=== PATIENT | male | born 1955 | race African-American/Black ===

== ENCOUNTER 2018-07-16 13:59 | Inpatient (IN) | payer OTHER, SELFPAY ==
[2018-07-16 15:02] LABS: INR-International Normal Ratio 0.9; PTT 30.4 SEC (22.9-36.1); Prothrombin Time 12.7 SEC (12.0-14.7)
[2018-07-16] MEDS ORDERED: Acetaminophen 325 MG TAB PO PRN (15:10)
[2018-07-16] MEDS ORDERED: Dextrose 5% in Water 1,000 ML IV PRN (15:12)
[2018-07-16] MEDS ORDERED: Dextrose 50% Abboject 50 ML SYRINGE SLOW IVP PRN (15:12)
[2018-07-16] MEDS ORDERED: methylPREDNISolone 4 mg Tablet PO SCH (15:15)
[2018-07-16] MEDS ORDERED: Metoprolol Tartrate 25 MG TAB ONE (16:53)
[2018-07-16] MEDS ORDERED: hydrALAZINE 20 MG/ML VIAL SLOW IVP PRN (17:04)
--- NOTE | 2018-07-16 17:49 | HP ---
CHIEF COMPLAINT: Swelling of the tongue. HISTORY OF PRESENT ILLNESS: The patient is a very pleasant 62-year-old male with a past medical hist ory of hypertension, diabetes, and chronic kidney disease who presented to the hospital with tongue s welling. The patient stated that he did not start any new medications; however, about maybe 6 months ago, that is when his first symptoms started of tongue swelling. The patient stated that it was mil d, which woke him up around early in the morning. He gargled with salt water and vinegar and that re solved. The second episode was about 6 weeks ago. He had a similar episode where he woke up and his tongue felt thick, so he did the similar thing by gargling with salt water and vinegar. However, th e second time around, it was more severe than the first time and his symptoms resolved, so he did not do anything about it. The patient stated that this morning he woke up around 4:00 a.m., felt very s ignificant thickness, felt like he was biting his tongue. The patient then did the same thing, gargl e with salt water and vinegar. He did not feel well; however, at 6:00 a.m., he took all his medicati ons including lisinopril, started having significant swelling around his lips area and also worsening of the tongue swelling, so he came in to [facility] for further investigation. The miesha ent over there was given Solu-Medrol and was transferred here for further management. PAST MEDICAL HISTORY: History of hypertension, diabetes, anemia, sickle cell trait, and also chronic kidney disease. Questionable polycystic kidney disease, I am not sure. 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 PAST SURGICAL HISTORY: He has had his left kidney removed. There is a question whether he had cance r versus it was polycystic, I am not sure. The patient is unsure also. He has had some back surgeri es. ALLERGIES: He is allergic to CODEINE and METFORMIN; he states he gets diarrhea, and with codeine he gets hives. MEDICATIONS: 1. The patient takes glipizide 10 mg daily. 2. Amlodipine 10 mg daily. 3. Chlorthalidone 25 mg daily. 4. Lisinopril 40 mg daily. 5. Novolin N 5 units daily. 6. Fish oil. 7. Nifedipine 30 mg once a day. SOCIAL HISTORY: The patient drinks a bottle of wine 2-3 times a week. Denies any smoking or drug us e. FAMILY HISTORY: No history of heart disease. He does have a history of diabetes in his family. REVIEW OF SYSTEMS: All negative except for the ones mentioned above in the HPI. PHYSICAL EXAMINATION: VITAL SIGNS: Temperature of 98.8, blood pressure of 115/60, heart rate of 86. He is 100% on room ai r. GENERAL: He is awake, alert, and oriented x3. He is in no apparent distress. HEENT: He does have some mild swelling of the tongue. No lip swelling was noted. I was able to see his uvula. CARDIOVASCULAR: S1, S2 present. No murmurs, rubs, or gallops. LUNGS: Clear to auscultation. No rhonchi or wheezes noted. ABDOMEN: Soft, nontender. Bowel sounds are present x2. EXTREMITIES: No edema. Pedal pulses are present x2. NEUROLOGIC: Neurovascular celeste, no focal deficits noted. SKIN: No lesions, cuts, or bruises noted. LABORATORY DATA: His WBC was 6, hemoglobin of 11.4, hematocrit of 35.6, platelets of 217. Chemistry : Sodium of 134, potassium of 4.5, BUN of 36, creatinine of 1.55. ASSESSMENT AND PLAN: The patient is a very pleasant 62-year-old male, who presented to the hospital with tongue swelling. 1. Angioedema, most likely secondary to CHRISS. We will hold his CHRISS and we will add it as an allergy. Also, we will put the patient on a Medrol Dosepak and also give Pepcid b.i.d. Also give him Clarit in and observe him overnight for any delayed reaction. The patient was notified that if he does have any change in symptoms, he needs to notify us about it. 2. Hypertension. We will continue the remaining of his medications. 3. Chronic kidney disease. We will continue to monitor. 4. For deep venous thrombosis prophylaxis, we will place the patient on SCDs.
[2018-07-16] MEDS: methylPREDNISolone 4 mg Tablet PO SCH ×2 (20:05→20:41)
[2018-07-16] MEDS: Famotidine 20 MG TAB PO SCH ×2 (20:40→20:57)
[2018-07-16] MEDS: Metoprolol Tartrate 25 MG TAB PO SCH ×2 (20:40→20:58)
[2018-07-16] MEDS: Loratadine 10 MG TAB PO SCH (20:58)
[2018-07-16] MEDS ORDERED: Insulin Glargine 5 UNITS in Pre-Filled Syringe 1 EACH SC SCH (21:00)
[2018-07-16] MEDS ORDERED: Metoprolol Tartrate 25 MG TAB PO SCH (21:00)
[2018-07-16 22:09] VITALS: BMI 32.9
[2018-07-17] MEDS: methylPREDNISolone 4 mg Tablet PO SCH ×3 (00:04→13:18)
[2018-07-17 05:12] LABS: #Lymphocytes 1.2 thou/uL (1.20-3.40); #Monocytes 0.3 thou/uL (0.11-0.59); #Neutrophils 5.5 thou/uL (1.40-6.50); %Basophils 0.2 % (0.0-1.0); %Eosinophils 0.1 % (0.0-10.0); %Lymphocytes 17.1 % (21.0-51.0); %Monocytes 4.5 % (0.0-10.0); %Neutrophils 78.1 % (42.0-75.0); Anion Gap 15 mmol/L (10-20); BUN (Urea Nitrogen) 33 mg/dL (8.4-25.7); Calc. Creatinine Clearance 79 mL/min (70-130); Calcium 9.3 mg/dL (7.8-10.44); Carbon Dioxide 21 mmol/L (23-31); Chloride 100 mmol/L (98-107); Estimated GFR-MDRD 58; Glucose 274 mg/dL (80-115); Hemoglobin 10.1 g/dL (14.0-18.0); Mean Corpuscular Hemoglobin 26.2 pg (27.0-31.0); Mean Corpuscular Volume 77.1 fL (78.0-98.0); Mean Platelet Volume 8.5 fL (7.4-10.4); Platelet Count 221 thou/uL (130-400); Potassium 4.7 mmol/L (3.5-5.1); RBC Distribution Width 12.4 % (11.5-14.5); Red Blood Cell (RBC) Count 3.87 mill/uL (4.70-6.10); Sodium 131 mmol/L (136-145)
[2018-07-17] MEDS: HumaLOG 300 UNITS/3 ML VIAL SC PRN ×2 (06:06→13:18)
[2018-07-17 07:32] VITALS: TEMP 98
[2018-07-17] MEDS: Famotidine 20 MG TAB PO SCH (08:35)
[2018-07-17] MEDS: Loratadine 10 MG TAB PO SCH (08:36)
[2018-07-17] MEDS ORDERED: NIFEdipine XL 30 MG TAB PO SCH (09:00)
[2018-07-17 11:17] VITALS: BP 139/96
[2018-07-17] MEDS ORDERED: methylPREDNISolone 4 mg Tablet PO SCH (21:00)
--- NOTE | 2018-07-17 21:01 | DIS ---
DATE OF ADMISSION: 07/16/2018 DATE OF DISCHARGE: 07/17/2018 DISCHARGE DIAGNOSES: 1. Angioedema. 2. Hypertension. 3. Diabetes. HOSPITAL COURSE: The patient is a very pleasant 62-year-old male who initially presented to the hosp ital with complaints of swelling of his tongue. The patient was initially given steroids and was tra [facility] to [facility] for further evaluation. He was monitored overnight in e ICU. The patient's symptoms continued to improve. He will be discharged home today. Patient has been taking lisinopril, which has been discontinued. MEDICATIONS: His home medications will be as of the following, glipizide 5 mg b.i.d., insulin 12 uni ts b.i.d., fish oil 1000 daily, chlorthalidone 25 mg daily p.r.n., Medrol Dosepak daily, Procardia 60 mg daily, Claritin 10 mg daily, isosorbide 30 mg daily, and Pepcid 20 mg b.i.d. Patient again was told that if his symptoms worsen, he needs to call or come into the ER. He will fo llow up with his primary care doctor next week since his blood pressure has been kind of labile and I have taken him off of the lisinopril. PHYSICAL EXAMINATION: VITAL SIGNS: 98.0, 81, 18, 96% room air, 133/79. GENERAL: He is awake, alert, oriented x3, does not appear in distress. CARDIOVASCULAR: S1, S2 present. No murmurs, rubs or gallops. ABDOMEN: Soft, nontender. Bowel sounds are present x2. EXTREMITIES: No edema. HEENT: His tongue is back to his baseline. The patient is able to eat, has no swallowing difficulti es, has no breathing difficulties. Again, he will be discharged home. Follow up with his primary ca re doctor.
[2018-07-18] MEDS ORDERED: methylPREDNISolone 4 mg Tablet PO SCH (08:00)
[2018-07-19] MEDS ORDERED: methylPREDNISolone 4 mg Tablet PO SCH (08:00)
[2018-07-20] MEDS ORDERED: methylPREDNISolone 4 mg Tablet PO SCH (08:00)
[2018-07-21] MEDS ORDERED: methylPREDNISolone 4 mg Tablet PO SCH (08:00)
== END 2018-07-17 15:00 | disposition home or self-care (01) | DRG 916 ==
LOC: ERS 13:59 → IMCU/EMU 19:23
PROVIDERS: ADMIT Internal Medicine; ATTEND Internal Medicine
DX: T78.3XXA Angioneurotic edema, initial encounter (principal); I12.9 Hypertensive chronic kidney disease with stage 1 through stage 4 chronic kidney disease, or unspecified chronic kidney disease; N18.9 Chronic kidney disease, unspecified; E11.22 Type 2 diabetes mellitus with diabetic chronic kidney disease
CPT/HCPCS: 36415; 36416; 80048; 85025; 85610; 85730; 86850; 86900; 86901; 99285

== ENCOUNTER → 2024-01-30 | Day surgery (SDC) | payer OTHER ==
[~2024-01-30] MED LIST: Lidocaine 2% PF 5 ML VIAL ONE; PROPOFOL 40 ML ONE
== END ==
LOC: SDC 08:00
PROVIDERS: ATTEND Internal Medicine Gastroenterology
PROC: 0DBL8ZZ Excision of Transverse Colon, Via Natural or Artificial Opening Endoscopic (ICD-10-PCS; principal; 2024-01-30)
PROC: 0DBN8ZZ Excision of Sigmoid Colon, Via Natural or Artificial Opening Endoscopic (ICD-10-PCS; principal; 2024-01-30)
DX: Z12.11 Encounter for screening for malignant neoplasm of colon (principal); D12.5 Benign neoplasm of sigmoid colon; K63.5 Polyp of colon; K63.89 Other specified diseases of intestine; K64.9 Unspecified hemorrhoids; K57.30 Diverticulosis of large intestine without perforation or abscess without bleeding; I12.9 Hypertensive chronic kidney disease with stage 1 through stage 4 chronic kidney disease, or unspecified chronic kidney disease; N18.9 Chronic kidney disease, unspecified; Z88.6 Allergy status to analgesic agent; Z86.010 Personal history of colon polyps; Z87.891 Personal history of nicotine dependence; Z88.5 Allergy status to narcotic agent; Z88.8 Allergy status to other drugs, medicaments and biological substances
CPT/HCPCS: 36416; 88305; J2001; J2704